=== PATIENT | male | born 1930 ===

== ENCOUNTER → 2017-05-20 | Day surgery (SDC) | payer MEDICARE, MEDICAID ==
[2017-05-16 12:04] VITALS: BMI 21.4
[~2017-05-20] MED LIST: Bupivacaine HCl 0.5% PF (10 ml) Inj ONE; HYDROmorphone 0.5 mg/0.5 ml ISec IVP PRN; Lactated Ringer's 1,000 ML IV ONE; Lidocaine 1% Inj (20ml) ONE; Neostigmine Methylsulfate 3mg/3ml Syringe IV ONE; Oxycodone/Acetaminophen 5/325 mg Tab PO PRN; Phenylephrine 10 mg/ml Inj ONE; Propofol 10 mg/ml Inj (20 ML) ONE; Rocuronium 10 mg/ml (5 ml) ONE; Succinylcholine Chloride 20 mg/ml Syr (5 ml) IV ONE; Vasopressin 20 Units/ml Inj ONE; ceFAZolin IV 1 gm in Dextrose 1 GM/50 ML BAG IVPB ONE; ePHEDrine 50 mg/ml Inj ONE
--- NOTE | 2017-05-20 15:24 | PCM.SURG1 ---
Surgeon's Initial Post Op Note - Surgeon's Notes Surgeon: Dr. Lewis [employer] Technical: Deonte PGY1 Type of Anesthesia: General Endo Anesthesia Administered By: Dr. Silva Pre-Operative Diagnosis: R indirect inguinal hernia Operative Findings: see operative report Post-Operative Diagnosis: R indirect inguinal hernia Operation Performed: R indirect inguinal hernia repair with mesh Specimen/Specimens Removed: hernia sac Estimated Blood Loss: EBL {In ML}: 10 Blood Products Given: N/A Drains Used: No Drains Post-Op Condition: Good Date of Surgery/Procedure: 05/20/17 Time of Surgery/Procedure: 14:00
[2017-05-20 17:17] VITALS: RESP 18
[2017-05-20 18:04] VITALS: BP 110/63; PULSE 78; TEMP 98; O2SAT 96
--- NOTE | 2017-05-21 05:04 | OP ---
PROCEDURE DATE: 05/20/2017 SURGEON: Martha Rajput MD COMPOSER TEACHING ARTIST: Dr. Clemons. ANESTHESIA: General, Dr. Silva. PREOPERATIVE DIAGNOSIS: Right inguinal hernia. POSTOPERATIVE DIAGNOSIS: Right inguinal hernia. PROCEDURE: Right inguinal hernia repair with mesh. DESCRIPTION OF OPERATION: With the patient in the supine position under adequate general anesthesia, the right groin was prepped and draped in the usual sterile manner. Transverse incision was made in the right upper groin crease, taken down through the subcutaneous tissue. The external oblique layer was identified and opened from the internal inguinal ring to the external inguinal ring. The spermatic cord was then identified and dissected as it passed over the pubic tubercle. It was noted to be mildly thickened with primarily fatty overlying material, and as the cord was dissected, an indirect hernia sac was identified and dissected from the underlying cord structures back to the level of the internal inguinal ring. The sac was suture ligated with a 0 Vicryl suture, and the sac was amputated. The medial inguinal floor appeared intact, although the internal inguinal ring was noted to be moderately enlarged. The spermatic cord was gently retracted laterally, and a size medium ProLoop plug was positioned well up within the internal ring deep to the transversalis fascia and the shelving edge of the inguinal ligament, and it was sutured to each of the structures using 2-0 Prolene sutures. The flat portion of the mesh was then trimmed to approximate the inguinal floor, and starting medially at the pubic tubercle, the mesh was sutured superiorly to the transversalis fascia and inferiorly to the shelving edge of the inguinal ligament also using 2-0 Prolene and encompassing the previously placed sutures that is medial to the internal ring. The mesh was grubbs-holed around the internal ring and the spermatic cord and sutured closed also with 2-0 Prolene. The external oblique was then reapproximated over the repair and the spermatic cord using running suture of 0 Vicryl. The subcutaneous tissues were approximated with 3-0 Vicryl sutures, and closure was performed with running subcuticular suture of 4-0 Monocryl and Steri-Strips. Dry sterile dressings were applied. The patient tolerated the procedure well and transferred to recovery room in stable condition. Estimated blood loss for the procedure was 10 mL. Martha Rajput MD [facility] # [id number]
== END | disposition home or self-care (01) ==
LOC: C.SDS 11:11
PROVIDERS: ATTEND Specialist
DX: K40.91 Unilateral inguinal hernia, without obstruction or gangrene, recurrent (principal); Z79.899 Other long term (current) drug therapy; K21.9 Gastro-esophageal reflux disease without esophagitis; I10 Essential (primary) hypertension; F32.9 Major depressive disorder, single episode, unspecified
CPT/HCPCS: 49520; J0171; J0690; J1170; J2370; J2704; J2710; J3010; J7120